=== PATIENT | male | born 1970 | race Caucasian/White ===

== ENCOUNTER 2024-04-30 12:02 | Emergency (ER) | payer BC ==
[2024-04-30 12:47] LABS: Bilirubin Negative (Negative); Blood, Urine Large (Negative); Glucose, Urine (Dipstick) Negative (Negative); Ketone, Urine Negative (Negative); Leukocyte Small (Negative); Nitrite Negative (Negative); Protein, Urine (Dipstick) 100 mg/dL (Neg-Trace); Specific Gravity, Urine 1.015 (1.005-1.030); Urobilinogen 0.2 mg/dL (Less than 2)
[2024-04-30 12:48] LABS: Clarity Hazy (Clear)
[2024-04-30 12:53] LABS: RBC/HPF Greater than 50 HPF (0-3)
[2024-04-30 12:54] LABS: Bacteria/HPF Rare-Few HPF (None Seen); CAUTI Indications for Culture Dysuria,urgency,freq; Squamous Epithelial 0-3 HPF (0-3); Transitional Epithelial 0-3 HPF (None Seen)
[2024-04-30 12:55] LABS: Urine Culture Reflex Yes Yes
== END 2024-04-30 13:05 | disposition home or self-care (01) ==
LOC: MADERS 12:02
DX: T83.091A Other mechanical complication of indwelling urethral catheter, initial encounter (principal); E11.9 Type 2 diabetes mellitus without complications; I10 Essential (primary) hypertension
CPT/HCPCS: 81001; 87077; 87086; 87186; 99283